=== PATIENT | male | born 1965 | race Caucasian/White ===

== ENCOUNTER 2017-08-02 19:16 | Emergency (ER) | payer SELFPAY ==
[~2017-08-02 19:16] MED LIST: LORT5TAB PO; Z.0.NO CURRENT MEDS
[2017-08-02 19:18] VITALS: BP 157/91; PULSE 83; RESP 16; TEMP 98.8; O2SAT 96
--- NOTE | 2017-08-02 21:12 | PD ---
HPI Chief Complaint: Psychiatric Symptoms Time Seen by Provider: 20:42 Travel History International Travel<30 days: No Contact w/Intl Traveler<30days: No Traveled to known affect area: No History of Present Illness HPI 51-year-old white male presents to emergency department on a voluntary basis for psychological evaluation. History of bipolar and substance abuse. Patient states that if he does not get detox he will kill himself. He states that he has access to a gun. He felt that if he had gone to [facility] and they had turned room why he would kill himself. The patient admits to smoking ice today. 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 He states that all his family are including his mother, father and brother. He is from his who is an alcoholic. He states that he has nothing to live for. Patient denies any toxic ingestions. He denies any homicidal ideation. Patient does have some vague complaints of intermittent abdominal pain which she reports be possibly from withdrawal. He denies any fever or chills. No chest pain or shortness of breath. No vomiting. No urinary symptoms. PFSH Past Medical History Narrative Medical Bipolar, substance abuse Anxiety: Yes Cardiac Catheterization: No Cardiovascular Problems: No High Cholesterol: No Congestive Heart Failure: No Diabetes: No Diminished Hearing: No Myocardial Infarction: No Tetanus Vaccination: Unknown Past Surgical History Narrative Surgical TONSILLECTOMY Coronary Artery Bypass Graft: No Tonsillectomy: Yes Family History Family Myocardial Infarction: Yes Social History Alcohol Use: Yes (24 PER MONTH) Tobacco Use: Yes (2 PPD) Substance Use: Yes Allergies-Medications (Allergen,Severity, Reaction): Coded Allergies: No Known Allergies (Verified Adverse Reaction, Unknown, 08/02/17) Reported Meds & Prescriptions Reported Meds & Active Scripts Active No Active Prescriptions or Reported Medications Review of Systems General / Constitutional: No: Fever Eyes: No: Visual changes HENT: No: Headaches Cardiovascular: No: Chest Pain or Discomfort Respiratory: No: Shortness of Breath Gastrointestinal: Positive: Abdominal Pain, No: Nausea, Vomiting Genitourinary: No: Dysuria Musculoskeletal: No: Pain Skin: No Rash Neurologic: No: Weakness Psychiatric: Positive: Depression, Suicidal Ideations, Mood Disorder, Substance Abuse, No: Anxiety, Disorder of Thought, Homicidal Ideation Endocrine: No: Polydipsia Hematologic/Lymphatic: No: Easy Bruising Physical Exam Narrative GENERAL: Well-nourished, well-developed patient. SKIN: Warm and dry. HEAD: Normocephalic and atraumatic. EYES: No scleral icterus. No injection or drainage. ENT: No nasal drainage noted. Mucous membranes pink. Airway patent. NECK: Supple, trachea midline. Moves head freely without obvious discomfort. CARDIOVASCULAR: Regular rate and rhythm without murmurs, gallops, or rubs. RESPIRATORY: Breath sounds equal bilaterally. No accessory muscle use. GASTROINTESTINAL: Abdomen soft, non-tender, nondistended. EXTREMITIES: No cyanosis or edema. BACK: Nontender without obvious deformity. No CVA tenderness. NEURO: Patient is alert and oriented. no sensorimotor deficits. Nonfocal. Normal speech. PSYCH: No delusions. No auditory or visual hallucinations. Data Data Last Documented VS Vital Signs Date Time Temp Pulse Resp B/P (MAP) Pulse Ox O2 Delivery O2 Flow Rate FiO2 08/02/17 19:18 98.8 83 16 157/91 (113) 96 Room Air Orders Orders Complete Blood Count With Diff (08/02/17 21:03) Comprehensive Metabolic Panel (08/02/17 21:03) Psych Screen (08/02/17 21:03) Drug Screen, Random Urine (08/02/17 21:03) Alcohol (Ethanol) (08/02/17 21:03) Salicylates (Aspirin) (08/02/17 21:03) Labs Laboratory Tests Test 08/02/17 21:10 08/02/17 21:15 Urine Opiates Screen NEG Urine Barbiturates Screen NEG Urine Amphetamines Screen NEG Urine Benzodiazepines Screen NEG Urine Cocaine Screen NEG Urine Cannabinoids Screen NEG White Blood Count 8.8 TH/MM3 Red Blood Count 4.68 MIL/MM3 Hemoglobin 14.9 GM/DL Hematocrit 43.6 % Mean Corpuscular Volume 93.0 FL Mean Corpuscular Hemoglobin 31.7 PG Mean Corpuscular Hemoglobin Concent 34.1 % Red Cell Distribution Width 13.9 % Platelet Count 185 TH/MM3 Mean Platelet Volume 10.4 FL Neutrophils (%) (Auto) 49.6 % Lymphocytes (%) (Auto) 36.4 % Monocytes (%) (Auto) 10.5 % Eosinophils (%) (Auto) 2.6 % Basophils (%) (Auto) 0.9 % Neutrophils # (Auto) 4.3 TH/MM3 Lymphocytes # (Auto) 3.2 TH/MM3 Monocytes # (Auto) 0.9 TH/MM3 Eosinophils # (Auto) 0.2 TH/MM3 Basophils # (Auto) 0.1 TH/MM3 CBC Comment DIFF FINAL Differential Comment Blood Urea Nitrogen 10 MG/DL Creatinine 0.67 MG/DL Random Glucose 100 MG/DL Total Protein 7.6 GM/DL Albumin 3.3 GM/DL Calcium Level 9.1 MG/DL Alkaline Phosphatase 77 U/L Aspartate Amino Transf (AST/SGOT) 95 U/L Alanine Aminotransferase (ALT/SGPT) 228 U/L Total Bilirubin 0.3 MG/DL Sodium Level 140 MEQ/L Potassium Level 4.0 MEQ/L Chloride Level 111 MEQ/L Carbon Dioxide Level 20.6 MEQ/L Anion Gap 8 MEQ/L Estimat Glomerular Filtration Rate 126 ML/MIN Salicylates Level 4.7 MG/DL Ethyl Alcohol Level LESS THAN 3 MG/DL MDM Medical Decision Making Medical Screen Exam Complete: Yes Emergency Medical Condition: Yes Medical Record Reviewed: Yes Interpretation(s) Laboratory Tests Test 08/02/17 21:10 08/02/17 21:15 Urine Opiates Screen NEG Urine Barbiturates Screen NEG Urine Amphetamines Screen NEG Urine Benzodiazepines Screen NEG Urine Cocaine Screen NEG Urine Cannabinoids Screen NEG White Blood Count 8.8 TH/MM3 Red Blood Count 4.68 MIL/MM3 Hemoglobin 14.9 GM/DL Hematocrit 43.6 % Mean Corpuscular Volume 93.0 FL Mean Corpuscular Hemoglobin 31.7 PG Mean Corpuscular Hemoglobin Concent 34.1 % Red Cell Distribution Width 13.9 % Platelet Count 185 TH/MM3 Mean Platelet Volume 10.4 FL Neutrophils (%) (Auto) 49.6 % Lymphocytes (%) (Auto) 36.4 % Monocytes (%) (Auto) 10.5 % Eosinophils (%) (Auto) 2.6 % Basophils (%) (Auto) 0.9 % Neutrophils # (Auto) 4.3 TH/MM3 Lymphocytes # (Auto) 3.2 TH/MM3 Monocytes # (Auto) 0.9 TH/MM3 Eosinophils # (Auto) 0.2 TH/MM3 Basophils # (Auto) 0.1 TH/MM3 CBC Comment DIFF FINAL Differential Comment Blood Urea Nitrogen 10 MG/DL Creatinine 0.67 MG/DL Random Glucose 100 MG/DL Total Protein 7.6 GM/DL Albumin 3.3 GM/DL Calcium Level 9.1 MG/DL Alkaline Phosphatase 77 U/L Aspartate Amino Transf (AST/SGOT) 95 U/L Alanine Aminotransferase (ALT/SGPT) 228 U/L Total Bilirubin 0.3 MG/DL Sodium Level 140 MEQ/L Potassium Level 4.0 MEQ/L Chloride Level 111 MEQ/L Carbon Dioxide Level 20.6 MEQ/L Anion Gap 8 MEQ/L Estimat Glomerular Filtration Rate 126 ML/MIN Salicylates Level 4.7 MG/DL Ethyl Alcohol Level LESS THAN 3 MG/DL Differential Diagnosis MDM: High Differential diagnoses: Schizophrenia, schizoaffective disorder, bipolar, anxiety, depression, adjustment reaction, mood disorder NOS, ODD, depressive disorder NOS, dementia, dementia with agitation, psychosis NOS, substance induced mood disorder, DMDD, Asperger syndrome, infection,electrolyte abnormality, malingering. Narrative Course Mental health screening discussed with the patient. Psychiatric screen ordered. The patient is been medically clear. Patient has elevated transaminases most likely related to his substance abuse and possible hepatitis C This is medical clearance for psychiatric admission, substance abuse Diagnosis Primary Impression: Medical clearance for psychiatric admission Additional Impression: Substance abuse Scripts No Active Prescriptions or Reported Meds Condition: Stable Shaq Meza Aug 02, 2017 21:12
[2017-08-02 21:27] LABS: AUTOMATED NEUTROPHIL # 4.3 TH/MM3 (1.8-7.7); BASOPHIL # 0.1 TH/MM3 (0-0.2); BASOPHIL % 0.9 % (0.0-2.0); EOSINOPHIL # 0.2 TH/MM3 (0-0.4); EOSINOPHIL % 2.6 % (0.0-4.0); HEMATOCRIT 43.6 % (39.0-51.0); HEMOGLOBIN 14.9 GM/DL (13.0-17.0); LYMPH % 36.4 % (9.0-44.0); LYMPHOCYTE # 3.2 TH/MM3 (1.0-4.8); MEAN CORPUSCULAR HEMOGLOBIN 31.7 PG (27.0-34.0); MEAN CORPUSCULAR HGB CONC 34.1 % (32.0-36.0); MEAN PLATELET VOLUME 10.4 FL (7.0-11.0); MONO % 10.5 % (0.0-8.0); MONOCYTE # 0.9 TH/MM3 (0-0.9); NEUT % 49.6 % (16.0-70.0); PLATELET COUNT 185 TH/MM3 (150-450); RED BLOOD COUNT 4.68 MIL/MM3 (4.50-5.90); RED CELL DISTRIBUTION WIDTH 13.9 % (11.6-17.2); WHITE BLOOD COUNT 8.8 TH/MM3 (4.0-11.0)
[2017-08-02 21:43] LABS: ALBUMIN 3.3 GM/DL (3.4-5.0); ALT (GPT) 228 U/L (12-78); AST (GOT) 95 U/L (15-37); BICARBONATE 20.6 MEQ/L (21.0-32.0); BLOOD UREA NITROGEN 10 MG/DL (7-18); CALCIUM 9.1 MG/DL (8.5-10.1); CHLORIDE 111 MEQ/L (98-107); CREATININE 0.67 MG/DL (0.60-1.30); GLOMERULAR FILTRATION RATE 126 ML/MIN (>89); GLUCOSE,RANDOM 100 MG/DL (74-106); SODIUM (NA) 140 MEQ/L (136-145)
[2017-08-02 21:46] LABS: ALKALINE PHOSPHATASE 77 U/L (45-117); TOTAL BILIRUBIN ADULT 0.3 MG/DL (0.2-1.0); TOTAL PROTEIN 7.6 GM/DL (6.4-8.2)
[2017-08-02 23:25] VITALS: BP 143/66; PULSE 99; RESP 16; TEMP 99.1; O2SAT 99
[2017-08-03] MEDS ORDERED: diphenhydrAMINE HCL 50 MG CAP PO ONE (00:30)
[2017-08-03 02:29] VITALS: BP 120/75; PULSE 71; RESP 18; TEMP 100.1; O2SAT 98
[2017-08-03 06:35] VITALS: BP 140/70; PULSE 67; RESP 18; TEMP 98.5; O2SAT 97
--- NOTE | 2017-08-03 08:52 | PD ---
Physical Exam Time Seen by Provider: 08:50 Narrative A bed at [facility] had opened up and the patient wants to go to [facility] for rehab. He is here voluntarily and contracts safety as long as he can go to [facility] for rehabilitation. He denies suicidal or homicidal ideations. The patient is being provided transportation to [facility]. Data Data Last Documented VS Vital Signs Date Time Temp Pulse Resp B/P (MAP) Pulse Ox O2 Delivery O2 Flow Rate FiO2 08/03/17 10:10 08/03/17 06:35 98.5 67 18 97 Room Air Orders Orders Complete Blood Count With Diff (08/02/17 21:03) Comprehensive Metabolic Panel (08/02/17 21:03) Psych Screen (08/02/17 21:03) Drug Screen, Random Urine (08/02/17 21:03) Alcohol (Ethanol) (08/02/17 21:03) Salicylates (Aspirin) (08/02/17 21:03) Diphenhydramine (Benadryl) (08/03/17 00:30) Diet Regular Basic (08/03/17 Breakfast) Ed Discharge Order (08/03/17 08:52) Labs Laboratory Tests Test 08/02/17 21:10 08/02/17 21:15 Urine Opiates Screen NEG Urine Barbiturates Screen NEG Urine Amphetamines Screen NEG Urine Benzodiazepines Screen NEG Urine Cocaine Screen NEG Urine Cannabinoids Screen NEG White Blood Count 8.8 TH/MM3 Red Blood Count 4.68 MIL/MM3 Hemoglobin 14.9 GM/DL Hematocrit 43.6 % Mean Corpuscular Volume 93.0 FL Mean Corpuscular Hemoglobin 31.7 PG Mean Corpuscular Hemoglobin Concent 34.1 % Red Cell Distribution Width 13.9 % Platelet Count 185 TH/MM3 Mean Platelet Volume 10.4 FL Neutrophils (%) (Auto) 49.6 % Lymphocytes (%) (Auto) 36.4 % Monocytes (%) (Auto) 10.5 % Eosinophils (%) (Auto) 2.6 % Basophils (%) (Auto) 0.9 % Neutrophils # (Auto) 4.3 TH/MM3 Lymphocytes # (Auto) 3.2 TH/MM3 Monocytes # (Auto) 0.9 TH/MM3 Eosinophils # (Auto) 0.2 TH/MM3 Basophils # (Auto) 0.1 TH/MM3 CBC Comment DIFF FINAL Differential Comment Blood Urea Nitrogen 10 MG/DL Creatinine 0.67 MG/DL Random Glucose 100 MG/DL Total Protein 7.6 GM/DL Albumin 3.3 GM/DL Calcium Level 9.1 MG/DL Alkaline Phosphatase 77 U/L Aspartate Amino Transf (AST/SGOT) 95 U/L Alanine Aminotransferase (ALT/SGPT) 228 U/L Total Bilirubin 0.3 MG/DL Sodium Level 140 MEQ/L Potassium Level 4.0 MEQ/L Chloride Level 111 MEQ/L Carbon Dioxide Level 20.6 MEQ/L Anion Gap 8 MEQ/L Estimat Glomerular Filtration Rate 126 ML/MIN Salicylates Level 4.7 MG/DL Ethyl Alcohol Level LESS THAN 3 MG/DL MDM Supervised Visit with [place]: No Narrative Course Patient contracts safety. The patient is being transported to [facility] for rehab; there is a bed available. He Denies suicidal or homicidal ideations. I feel the patient as not a threat to himself or others at this time and feel comfortable discharging him to [facility]. Diagnosis Primary Impression: Substance abuse Referrals: YEHUDA (Out patient) [facility] Primary Care Physician Psychiatrist [facility] Additional Instruction: Contract safety to your self and others Follow-up with psychiatry Follow-up with primary care provider Follow-up with Uche Adkins/YEHUDA Return to the emergency department immediately with worsening of symptoms Med/Other Pt SpecificInfo: No Change to Meds, No Meds Exist/No RX given Scripts No Active Prescriptions or Reported Meds Disposition: 01 DISCHARGE HOME Condition: Stable Sudha Kirkpatrick Aug 03, 2017 08:52
== END 2017-08-03 10:16 | disposition home or self-care (01) ==
LOC: NEPD 19:16 → NEPJ 08-03 10:16
DX: F19.10 Other psychoactive substance abuse, uncomplicated (principal); F17.200 Nicotine dependence, unspecified, uncomplicated
CPT/HCPCS: 80053; 80307; 85025; 99284; Q0163

== ENCOUNTER 2017-08-03 12:14 | Emergency (ER) | payer SELFPAY ==
[~2017-08-03] VITALS: Ht 182.9 cm; Wt 93.0 kg
[2017-08-03 12:15] VITALS: BP 130/86; PULSE 87; RESP 18; TEMP 98.4; O2SAT 98
--- NOTE | 2017-08-03 13:42 | PD ---
HPI Chief Complaint: Psychiatric Symptoms Time Seen by Provider: 13:42 Travel History International Travel<30 days: No Contact w/Intl Traveler<30days: No Traveled to known affect area: No History of Present Illness HPI This report is in ERROR Please disregard this report and all prior copies ! This report is in ERROR Please disregard this report and all prior copies ! This report is in ERROR Please disregard this report and all prior copies ! PFSH Past Medical History Anxiety: Yes Cardiac Catheterization: No Cardiovascular Problems: No High Cholesterol: No Congestive Heart Failure: No Diabetes: No Diminished Hearing: No Myocardial Infarction: No Past Surgical History Coronary Artery Bypass Graft: No Tonsillectomy: Yes Social History Alcohol Use: Yes (24 PER MONTH) Tobacco Use: Yes (2 PPD) Substance Use: Yes (POLYSUBSTANCE) Allergies-Medications (Allergen,Severity, Reaction): Coded Allergies: No Known Allergies (Verified Adverse Reaction, Unknown, 08/03/17) Reported Meds & Prescriptions Reported Meds & Active Scripts Active No Active Prescriptions or Reported Medications Physical Exam Narrative This report is in ERROR Please disregard this report and all prior copies ! This report is in ERROR Please disregard this report and all prior copies ! This report is in ERROR Please disregard this report and all prior copies ! Data Data Last Documented VS Vital Signs Date Time Temp Pulse Resp B/P (MAP) Pulse Ox O2 Delivery O2 Flow Rate FiO2 08/03/17 12:15 98.4 87 18 130/86 (101) 98 Room Air Orders Orders Psych Screen (08/03/17 14:13) Ed Discharge Order (08/03/17 14:57) MDM Medical Decision Making Medical Screen Exam Complete: No Emergency Medical Condition: Yes (erroneous documentation) Differential Diagnosis This report is in ERROR Please disregard this report and all prior copies ! This report is in ERROR Please disregard this report and all prior copies ! This report is in ERROR Please disregard this report and all prior copies ! Narrative Course This report is in ERROR Please disregard this report and all prior copies ! This report is in ERROR Please disregard this report and all prior copies ! This report is in ERROR Please disregard this report and all prior copies ! Scripts No Active Prescriptions or Reported Meds Macarena Mistry [facility] Aug 03, 2017 13:42
--- NOTE | 2017-08-03 14:16 | PD ---
HPI Chief Complaint: Psychiatric Symptoms Time Seen by Provider: 14:14 Travel History International Travel<30 days: No Contact w/Intl Traveler<30days: No Traveled to known affect area: No History of Present Illness HPI 51-year-old male presents to emergency department with suicidal ideations. States he does not have a plan. Patient was discharged morning from this hospital and transported to [facility]. [facility] apparently did not have a bed so patient return to the hospital for further evaluation. Patient denies any recent alcohol or other ingestions. Denies hallucinations. Patient states that he needs help and would like to "go to the contained area". I believe patient is referring to [facility]. [facility] Past Medical History Anxiety: Yes Cardiac Catheterization: No Cardiovascular Problems: No High Cholesterol: No Congestive Heart Failure: No Diabetes: No Diminished Hearing: No Myocardial Infarction: No Past Surgical History Coronary Artery Bypass Graft: No Tonsillectomy: Yes Social History Alcohol Use: Yes (24 PER MONTH) Tobacco Use: Yes (2 PPD) Substance Use: Yes (POLYSUBSTANCE) Allergies-Medications (Allergen,Severity, Reaction): Coded Allergies: No Known Allergies (Verified Adverse Reaction, Unknown, 08/03/17) Reported Meds & Prescriptions Reported Meds & Active Scripts Active No Active Prescriptions or Reported Medications Review of Systems Except as stated in HPI: all other systems reviewed are Neg Physical Exam Narrative GENERAL: Well-nourished, well-developed patient. SKIN: Focused skin assessment warm/dry. HEAD: Normocephalic. EYES: No scleral icterus. No injection or drainage. NECK: Supple, trachea midline. No JVD or lymphadenopathy. CARDIOVASCULAR: Regular rate and rhythm without murmurs, gallops, or rubs. RESPIRATORY: Breath sounds equal bilaterally. No accessory muscle use. MUSCULOSKELETAL: No cyanosis, or edema. BACK: Nontender without obvious deformity. No CVA tenderness. Data Data Last Documented VS Vital Signs Date Time Temp Pulse Resp B/P (MAP) Pulse Ox O2 Delivery O2 Flow Rate FiO2 08/03/17 12:15 98.4 87 18 130/86 (101) 98 Room Air Orders Orders Psych Screen (08/03/17 14:13) Ed Discharge Order (08/03/17 14:57) MDM Medical Decision Making Medical Screen Exam Complete: Yes Emergency Medical Condition: Yes Differential Diagnosis Suicidal ideations, homicidal ideations, malingering, bipolar disorder, polysubstance abuse Narrative Course 51-year-old male presents to emergency department with suicidal ideations and he would like detox. States he does not have a plan. Patient was discharged morning from this hospital and transported to [facility]. [facility] apparently did not have a bed so patient return to the hospital for further evaluation. Patient denies any recent alcohol or other ingestions. Denies hallucinations. Patient states that he needs help and would like to "go to the [facility] area". I believe patient is referring to [facility]. Vital signs stable. Physical exam unremarkable. Spoke to KATHIA Huerta regarding this patient as she saw him this morning. Patient was cleared after labs and evaluation and discharged to [facility]. At the time, apparently there was a bed for him but upon arrival there was not placement for him. Patient is medically cleared to see psych. Psych evaluated the patient and he will be discharged for home. Note that patient is homeless and frequents the hospital regularly. In addition, note that his UDS was clean of any drugs although he says he uses cocaine and 'ice' every 2-3 days. Patient advised to follow up with [facility] as discussed multiple times previously. Diagnosis Primary Impression: Suicidal ideations Additional Impression: Bipolar disorder Qualified Codes: F31.61 - Bipolar disorder, current episode mixed, mild Referrals: [facility] Additional Instructions: Follow up with your primary care physician within 2-3 days. If your symptoms persist or worsen, return to the emergency department. Follow-up as discussed. Scripts No Active Prescriptions or Reported Meds Disposition: 01 DISCHARGE HOME Condition: Stable Cristy Hernandez Aug 03, 2017 14:16
--- NOTE | 2017-08-03 15:11 | PD ---
History of Present Illness Chief Complaint: Psychiatric Symptoms Time Seen by Provider: 14:30 Travel History International Travel<30 Days: No Contact w/Intl Traveler<30days: No Known affected area: No Legal Status Legal Status: Voluntary History of Present Illness: History of Present Illness HPI 51year-old male with history of substance abuse as well as reported history of bipolar disorder presents to the emergency department on a voluntary basis with complaints of suicidal ideations. Patient had been discharged from our emergency department and was sent to [facility] for admission into their detox program. He had presented to our ED originally requesting detox and substance abuse treatment. His goal at that time was to get into [facility]. It appears that once patient arrived at [facility] they had given up his bed he then turned around and came back to the hospital. The patient is alert, oriented. There is no indication that he is psychotic, not manic. The patient is future oriented and is wanting to get into a rehabilitation facility. At the same time he finds himself homeless and is therefore requesting that we keep him here until a bed becomes available at [facility] Past Medical History Anxiety: Yes Cardiac Catheterization: No Cardiovascular Problems: No High Cholesterol: No Congestive Heart Failure: No Diabetes: No Diminished Hearing: No Myocardial Infarction: No Past Surgical History Coronary Artery Bypass Graft: No Tonsillectomy: Yes Psychiatric History Psychiatric History Hx Psychiatric Treatment: REPORTS HX OF BIPOLAR/SCHIZOPHRENIA AND HAS NOT BEEN ON MEDS FOR 6-8 MONTHS. HAD TAKEN SEROQUEL MOST RECENTLY AND DEPAKOTE WHEN LIVING IN [place]. History of Inpatient Treatment: No Guns or firearms in home: No Social History male, currently homeless. Hx Alcohol Use: Yes (24 PER MONTH) Hx Tobacco Use: Yes (2 PPD) Hx Substance Use: Yes (POLYSUBSTANCE) Substance Use Type: Alcohol, Crack, Marijuana, Amphetamines-Stimulants, Prescription Medications, Benzos (Valium,Xanax), Heroin, Cocaine, Synth Opiates- Pain Pills Hx of Substance Use Treatment: Yes Family Psychiatric History None reported Allergies-Medications (Allergen,Severity, Reaction): Coded Allergies: No Known Allergies (Verified Adverse Reaction, Unknown, 08/03/17) Reported Meds & Prescriptions Reported Meds & Active Scripts Active No Active Prescriptions or Reported Medications Review of Systems Except as stated in HPI: all other systems reviewed are Neg Mental Status Examination Appearance: Appropriate (dressed in shorts and a T-shirt with appropriate hygiene) Consciousness: Alert Orientation: x4 Motor Activity: Normal gait Speech: Unremarkable Language: Adequate Fund of Knowledge: Adequate Attention and Concentration: Adequate Memory: Unremarkable Mood: Appropriate Affect: Appropriate Thought Process & Associations: Intact, Logical, Goal directed Thought Content: Appropriate Hallucination Type: None Delusion Type: None Suicidal Ideation: No Suicidal Plan: No Suicidal Intention: No Homicidal Ideation: No Homicidal Plan: No Homicidal Intention: No Insight: Poor Judgment: Impulsive MDM Medical Decision Making Medical Record Reviewed: Yes Assessment/Plan 51-year-old male with history of substance abuse and self-reported history of bipolar disorder who presents to the emergency department within 2 hours of having been discharged to [facility]. He reports that when he got there there were no beds available he then came back to [facility]. At this time the patient is working with through [facility] correctional case records supervisor Arnulfo in helping him identify other detox facilities. He is future oriented and is wanting treatment for his substance use. There appears to be an element of malingering for [facility]. I have counseled patient on returning to [facility] as they have informed us that he needs to present himself back there in the morning for possible admission. At this time the patient is psychiatrically clear for discharge from the ED Orders Orders Psych Screen (08/03/17 14:13) Ed Discharge Order (08/03/17 14:57) Results Vital Signs Date Time Temp Pulse Resp B/P (MAP) Pulse Ox O2 Delivery O2 Flow Rate FiO2 08/03/17 12:15 98.4 87 18 130/86 (101) 98 Room Air Diagnosis Primary Impression: Substance abuse Psychiatrically Cleared: Yes Referrals: [facility] Additional Instructions: Follow-up as discussed. Prescriptions No Active Prescriptions or Reported Meds Disposition: 01 DISCHARGE HOME Condition: Stable Evelia Perry KATHIA Aug 03, 2017 15:11
== END 2017-08-03 15:09 | disposition home or self-care (01) ==
LOC: NEPK 12:14
DX: F31.9 Bipolar disorder, unspecified (principal); F20.9 Schizophrenia, unspecified; F41.9 Anxiety disorder, unspecified; F19.10 Other psychoactive substance abuse, uncomplicated; F17.200 Nicotine dependence, unspecified, uncomplicated; Z59.0 Homelessness
CPT/HCPCS: 99283